=== PATIENT | male | born 1980 | race Caucasian/White ===

== ENCOUNTER 2023-06-05 22:42 | Emergency (ER) | payer BC, OTHER ==
[2023-06-05 22:55] VITALS: TEMP 98.2
--- NOTE | 2023-06-06 00:09 | ED ---
Lower Extremity Injury HPI - General Chief Complaint: Extremity Injury, Lower Stated Complaint: Fall Time Seen by Provider: 06/05/23 22:58 Source: patient, RN notes reviewed Mode of arrival: ambulatory Limitations: no limitations - History of Present Illness Initial Comments: 42-year-old male presents emergency Department chief complaint of scrotal injur y. Patient states that there was a branch as bent over states that branch broke causing it to snap backwards striking the scrotum. Patient states this happened earlier today states he went to lay down states that he woke up in increasing pain and swelling. Patient states that he passed out from the discomfort he states that he has no complaints of chest pain headache dizziness. He states he was evaluated by EMS he states he felt fine but was concerned about his scrotal injury. He denies any dysuria or hematuria - Related Data Home Medications Medication Instructions Recorded Confirmed buPROPion [Wellbutrin] 150 mg PO BID 06/12/14 12/20/14 Previous Rx's Medication Instructions Recorded Ibuprofen [Motrin] 800 mg PO Q6HR PRN #20 tab 12/20/14 Penicillin V Potassium [Pen Vee K] 500 mg PO QID #40 tab 12/20/14 Allergies Allergy/AdvReac Type Severity Reaction Status Date / Time No Known Allergies Allergy Verified 12/20/14 11:57 Review of Systems ROS Statement: Those systems with pertinent positive or pertinent negative responses have been documented in the HPI. ROS Other: All systems not noted in ROS Statement are negative. Past Medical History Past Medical History: No Reported History History of Any Multi-Drug Resistant Organisms: None Reported Past Surgical History: No Surgical Hx Reported Past Psychological History: Depression Past Alcohol Use History: None Reported Past Drug Use History: None Reported General Exam Limitations: no limitations General appearance: alert, in no apparent distress Head exam: Present: atraumatic, normocephalic, normal inspection Respiratory exam: Present: normal lung sounds bilaterally. Absent: respiratory distress, wheezes, rales, rhonchi, stridor Cardiovascular Exam: Present: regular rate, normal rhythm, normal heart sounds. Absent: systolic murmur, diastolic murmur, rubs, gallop, clicks GI/Abdominal exam: Present: soft, normal bowel sounds. Absent: distended, tenderness, guarding, rebound, rigid exam: Present: testicular tenderness, scrotal swelling. Absent: normal inspection Course Vital Signs 06/05/23 06/06/23 22:49 00:55 Temperature 98.2 F Pulse Rate 77 66 Respiratory 20 18 Rate Blood Pressure 103/64 111/69 O2 Sat by Pulse 98 99 Oximetry Medical Decision Making - Medical Decision Making Was pt. sent in by a medical professional or institution (KAMILA Berry, [employer], urgent care, hospital, or fci...) When possible be specific @ -No Did you speak to anyone other than the patient for history (EMS, parent, family, police, friend...)? What history was obtained from this source @ -No Did you review nursing and triage notes (agree or disagree)? Why? @ -I reviewed and agree with nursing and triage notes Were old charts reviewed (outside hosp., previous admission, EMS record, old EKG, old radiological studies, urgent care reports/EKG's, fci records)? Report findings @ -No old charts were reviewed Differential Diagnosis (chest pain, altered mental status, abdominal pain women, abdominal pain men, vaginal bleeding, weakness, fever, dyspnea, syncope, headache, dizziness, GI bleed, back pain, seizure, CVA, palpatations, mental health, musculoskeletal)? @ -Hydrocil, varicocele, hematoma, EKG interpreted by me (3pts min.). @ -None X-rays interpreted by me (1pt min.). @ -None done CT interpreted by me (1pt min.). @ -None done U/S interpreted by me (1pt. min.). @ -SCROTUM SHOWS BILATERAL HYDROCELE, VARICOCELE What testing was considered but not performed or refused? (CT, X-rays, U/S, labs)? Why? @ -None What meds were considered but not given or refused? Why? @ -None Did you discuss the management of the patient with other professionals (professionals i.e. KAMILA Berry, [employer], lab, RT, psych nurse, healthcare social worker, wool mixer, teacher, biosecurity officer, case hardener)? Give summary @ -No Was smoking cessation discussed for >3mins.? @ -No Was critical care preformed (if so, how long)? @ -No Were there social determinants of health that impacted care today? How? (Homelessness, low income, unemployed, alcoholism, drug addiction, transportation, low edu. Level, literacy, decrease access to med. care, retirement, rehab)? @ -No Was there de-escalation of care discussed even if they declined (Discuss DNR or withdrawal of care, Hospice)? DNR status @ -No What co-morbidities impacted this encounter? (DM, HTN, Smoking, COPD, CAD, Cancer, CVA, ARF, Chemo, Hep., AIDS, mental health diagnosis, sleep apnea, morbid obesity)? @ -None Was patient admitted / discharged? Hospital course, mention meds given and r oute, prescriptions, significant lab abnormalities, going to OR and other pertinent info. @ -Discharge patient has noted swelling, traumatic scrotal pain with no obvious other injuries patient is discharged in stable condition patient probably had a syncopal episode after pain he had no complaints of chest pain shortness breath prior to this he states he felt a, non-states that the pain was very severe at that time. Patient has no other complaints currently. Undiagnosed new problem with uncertain prognosis? @ -No Drug Therapy requiring intensive monitoring for toxicity (Heparin, Nitro, Insulin, Cardizem)? @ -No Were any procedures done? @ -No Diagnosis/symptom? @ -Scrotal trauma, pain] Acute, or Chronic, or Acute on Chronic? @ -[Acute] Uncomplicated (without systemic symptoms) or Complicated (systemic symptoms)? @ -[Uncomplicated] Side effects of treatment? @ -[No] Exacerbation, Progression, or Severe Exacerbation? @ -[No] Poses a threat to life or bodily function? How? (Chest pain, [place], [place], pneumonia, PE, COPD, DKA, ARF, appy, cholecystitis, CVA, Diverticulitis, Homicidal, Suicidal, threat to staff... and all critical care pts) @ -[No] Disposition Clinical Impression: Scrotal trauma, Bilateral hydrocele Disposition: HOME SELF-CARE Condition: Stable Instructions (If sedation given, give patient instructions): Scrotal Pain (ED) Additional Instructions: Please return to the Emergency Department if symptoms worsen or any other concerns. Is patient prescribed a controlled substance at d/c from ED?: No Referrals: David Smith MD [Primary Care Provider] - 1-2 days Sanket Matson MD [STAFF PHYSICIAN] - 1-2 days Time of Disposition: 00:43
--- NOTE | 2023-06-06 00:11 | US ---
EXAM: US Scrotum CLINICAL HISTORY: ITS.REASON US Reason: trauma TECHNIQUE: Real-time ultrasound of the scrotum with color Doppler and image documentation. COMPARISON: No relevant prior studies available. FINDINGS: Right testicle: The RIGHT testicle measures 4.4 x 2.8 x 2.0 cm. No torsion. Left testicle: LEFT testicle measures 4.3 x 2.7 x 2.4 cm. No torsion. Epididymides: The RIGHT epididymal head measures 0.6 cm. The LEFT epididymal head measures 1.3 cm. Scrotum: Small bilateral testicular hydroceles. Minimal RIGHT-sided varicocele. IMPRESSION: 1. Small bilateral testicular hydroceles. 2. Minimal RIGHT-sided varicocele.
[2023-06-06 00:56] VITALS: BP 111/69; PULSE 66; RESP 18
== END 2023-06-06 00:56 | disposition home or self-care (01) ==
LOC: EC 22:42
DX: S39.94XA Unspecified injury of external genitals, initial encounter (principal); F32.A Depression, unspecified; Z79.899 Other long term (current) drug therapy; W18.30XA Fall on same level, unspecified, initial encounter
CPT/HCPCS: 76870; 93975; 99283